=== PATIENT | female | born 1995 | race African-American/Black ===

== ENCOUNTER 2016-11-24 15:55 | Emergency (ER) | payer OTHER ==
[2016-11-24 15:07] LABS: URINE SOURCE CATH
[2016-11-24 15:13] LABS: URINE APPEARANCE TURBID; URINE BLOOD NEG (NEG); URINE COLOR DK YELLOW; URINE GLUCOSE NEG (NEG); URINE KETONE TRACE (NEG); URINE LEUKOCYTE ESTERASE TRACE (NEG); URINE NITRATE NEG (NEG); URINE PH 5.5 (5-8); URINE PROTEIN TRACE (NEG); URINE SPECIFIC GRAVITY 1.032 (1.003-1.035)
[2016-11-24 15:15] LABS: U HYALINE CASTS AUWI 0-2 /[LPF]; URBCS1 AUWI 0-2 /[HPF] (0-2); URINE BACTERIA AUWI NEG (NEGATIVE); URINE SQUAMOUS EPITHELIAL CELL OCC /[HPF]; UWBCS1 AUWI 0-2 (0-5)
[2016-11-24 15:23] LABS: CULTURE INDICATED? NO; URINE BILIRUBIN NEG (NEG)
[2016-11-28 20:34] LABS: CHLAMYDIA TRACH Not Detected (Not Detected); N GONOR Not Detected (Not Detected)
== END 2016-11-24 16:25 | disposition home or self-care (01) ==
LOC: CED 15:55
PROVIDERS: Nurse Practitioner
DX: N89.8 Other specified noninflammatory disorders of vagina (principal); R30.0 Dysuria; F17.210 Nicotine dependence, cigarettes, uncomplicated
CPT/HCPCS: 51701; 81003; 84703; 87253; 87491; 87591; 87808; 87905; 99284